=== PATIENT | female | born 1980 | race Caucasian/White ===

== ENCOUNTER 2021-03-23 13:09 | Emergency (ER) | payer OTHER ==
[2021-03-23 14:02] LABS: BILIRUBIN,URINE NEGATIVE (NEGATIVE); GLUCOSE, URINE (UA) NEGATIVE (NEGATIVE); KETONES,URINE (UA) NEGATIVE (NEGATIVE); LEUKOCYTE ESTERASE, URINE NEGATIVE (NEGATIVE); NITRITE,URINE NEGATIVE (NEGATIVE); OCCULT BLOOD,URINE MODERATE (NEGATIVE); PH,URINE 5.5 PH (5.0-7.5); PROTEIN,URINE TRACE mg/dL (NEGATIVE); UROBILINOGEN,URINE 0.2 (NORMAL) E.U./dL (NORMAL)
[2021-03-23 14:04] LABS: BASOPHILS % (AUTO) 0.5 %; EOSINOPHILS # (AUTO) 0.1 10^3/uL (0.0-0.7); EOSINOPHILS % (AUTO) 0.6 %; HGB - HEMOGLOBIN 12.6 g/dL (12.0-16.0); LYMPHOCYTES # (AUTO) 1.7 10^3/uL (1.5-3.5); LYMPHOCYTES % (AUTO) 20.4 %; MEAN CORPUSCULAR HEMOGLOBIN 31.4 pg (27.0-31.0); MEAN CORPUSCULAR HGB CONC 33.2 g/dL (32.0-36.0); MEAN CORPUSCULAR VOLUME 94.8 fL (81.0-99.0); MEAN PLATELET VOLUME 9.9 fL (7.9-10.8); MONOCYTES # (AUTO) 0.3 10^3/uL (0.0-1.0); MONOCYTES % (AUTO) 4.2 %; NEUTROPHILS # (AUTO) 6.1 10^3/uL (1.5-6.6); NEUTROPHILS % (AUTO) 74.1 %; PLT - PLATELET COUNT 189 10^3/uL (130-450); RED BLOOD COUNT 4.01 10^6/uL (4.20-5.40); WHITE BLOOD COUNT 8.2 x10^3/uL (4.8-10.8)
[2021-03-23 14:16] LABS: ALBUMIN 4.3 g/dL (3.2-5.5); ALBUMIN/GLOBULIN RATIO 1.7 (1.0-2.2); BILIRUBIN,TOTAL 0.7 mg/dL (0.2-1.0); CALCIUM 9.2 mg/dL (8.5-10.3); CREATININE 0.7 mg/dL (0.4-1.0); POTASSIUM 4.2 mmol/L (3.5-5.0); TOTAL PROTEIN 6.8 g/dL (6.7-8.2)
[2021-03-23 14:21] LABS: CLARITY,URINE CLEAR (CLEAR); RBC,URINE 0-5 /HPF (0-5); SQUAMOUS EPITHELIAL CELL,UR FEW Squamous (<= Few); WBC,URINE 0-3 /HPF (0-5)
[2021-03-23 14:22] LABS: BACTERIA,URINE Rare /HPF (None Seen)
--- NOTE | 2021-03-23 14:39 | ED Physician Documentation ---
History of Present Illness - Stated complaint Stated Complaint: FEMALE - Chief complaint Chief Complaint: Abd Pain - History obtained from History obtained from: Patient - History of Present Illness Timing: Today Pain level max: 5 Pain level now: 2 - Additonal information Additional information: Patient is a 40-year-old female who presents to the emergency department stating that she has had heavy vaginal bleeding, pelvic cramping for the past 2 days. She states she passed a large piece of tissue today and that the bleeding has now decreased. Pain has decreased as well. She states that she was diagnosed with a miscarriage at the end of January, but did not have follow-up serial ultrasounds or hCGs. No fevers. No chills. Review of Systems Ten Systems: 10 systems reviewed and negative Constitutional: denies: Fever, Chills Respiratory: denies: Cough GI: denies: Vomiting, Diarrhea Skin: denies: Rash Musculoskeletal: denies: Neck pain, Back pain Neurologic: denies: Headache PD PAST MEDICAL HISTORY - Past Medical History Past Medical History: No - Past Surgical History Past Surgical History: No - Allergies Allergies/Adverse Reactions: Allergies Allergy/AdvReac Type Severity Reaction Status Date / Time No Known Drug Allergies Allergy Verified 03/23/21 13:21 - Living Situation Living Situation: reports: With family Living Arrangement: reports: At home PD ED PE NORMAL - Vitals Vital signs reviewed: Yes - General General: Alert and oriented X 3, No acute distress, Well developed/nourished - HEENT HEENT: PERRL, Moist mucous membranes - Neck Neck: Supple, no meningeal sign - Cardiac Cardiac: RRR, Strong equal pulses - Respiratory Respiratory: No respiratory distress, Clear bilaterally - Abdomen Abdomen: Soft, Non tender, Non distended - Derm Derm: Warm and dry - Extremities Extremities: No edema, No calf tenderness / cord - Neuro Neuro: Alert and oriented X 3 - Psych Psych: Normal mood, Normal affect Results - Vitals Vitals: Vital Signs - 24 hr 03/23/21 03/23/21 03/23/21 13:14 15:40 17:35 Temperature 37.0 C Heart Rate 74 69 69 Respiratory 16 16 16 Rate Blood Pressure 127/63 110/76 114/88 H O2 Saturation 100 100 100 Oxygen O2 Source Room air - Labs Labs: Laboratory Tests 03/23/21 03/23/21 03/23/21 13:39 13:58 13:58 WBC 8.2 RBC 4.01 L Hgb 12.6 Hct 38.0 MCV 94.8 MCH 31.4 H MCHC 33.2 RDW 12.0 Plt Count 189 MPV 9.9 Neut # (Auto) 6.1 Lymph # (Auto) 1.7 [place] # (Auto) 0.3 Eos # (Auto) 0.1 Baso # (Auto) 0.0 Absolute Nucleated RBC 0.00 Nucleated RBC % 0.0 Sodium 142 Potassium 4.2 Chloride 107 Carbon Dioxide 27 Anion Gap 8.0 BUN 12 Creatinine 0.7 Estimated GFR (MDRD) 93 Glucose 119 H Calcium 9.2 Total Bilirubin 0.7 AST 16 ALT 15 Alkaline Phosphatase 40 L Total Protein 6.8 Albumin 4.3 Globulin 2.5 Albumin/Globulin Ratio 1.7 Lipase 34 HCG, Quant Urine Color YELLOW Urine Clarity CLEAR Urine pH 5.5 Ur Specific [place] >=1.030 H Urine Protein TRACE Urine Glucose (UA) NEGATIVE Urine Ketones NEGATIVE Urine Occult Blood MODERATE H Urine Nitrite NEGATIVE Urine Bilirubin NEGATIVE Urine Urobilinogen 0.2 (NORMAL) Ur Leukocyte Esterase NEGATIVE Urine RBC 0-5 Urine WBC 0-3 Ur Squamous Epith Cells FEW Squamous Urine Bacteria Rare Ur Microscopic Review INDICATED Urine Culture Comments NOT INDICATED 03/23/21 13:58 WBC RBC Hgb Hct MCV MCH MCHC RDW Plt Count MPV Neut # (Auto) Lymph # (Auto) [place] # (Auto) Eos # (Auto) Baso # (Auto) Absolute Nucleated RBC Nucleated RBC % Sodium Potassium Chloride Carbon Dioxide Anion Gap BUN Creatinine Estimated GFR (MDRD) Glucose Calcium Total Bilirubin AST ALT Alkaline Phosphatase Total Protein Albumin Globulin Albumin/Globulin Ratio Lipase HCG, Quant 80.85 Urine Color Urine Clarity Urine pH Ur Specific [place] Urine Protein Urine Glucose (UA) Urine Ketones Urine Occult Blood Urine Nitrite Urine Bilirubin Urine Urobilinogen Ur Leukocyte Esterase Urine RBC Urine WBC Ur Squamous Epith Cells Urine Bacteria Ur Microscopic Review Urine Culture Comments - Rads (name of study) OB US Radiology: Prelim report reviewed, EMP read contemporaneously, See rad report (Findings are suspicious for minimal retained products of conception. No evidence of intrauterine or ectopic . ) PD MEDICAL DECISION MAKING - ED course Complexity details: reviewed results, re-evaluated patient, considered differential, d/w patient, d/w recruitment consultant ED course: Patient is a 40-year-old female who presents to the emergency department today with vaginal bleeding after a miscarriage a few months ago. Her hCG is still 80. Her ultrasound is suspicious for minimal retained products of conception. No evidence of IUP or ectopic . I discussed the case with Dr. Hair, OB on-call who recommends repeat hCG in a few days to see if it is going up or down. She does not feel a D&C is warranted at this time. Patient was comfortable following up with her doctor in [place]. I actually was able to speak with her doctor in [place] and inform her of the test results, need for follow-up and ultrasound results. Patient counseled regarding signs and symptoms for which I believe and urgent re-evaluation would be necessary. Patient with good understanding of and agreement to plan and is comfortable going home at this time This document was made in part using voice recognition software. While efforts are made to proofread this document, sound alike and grammatical errors may occur. Patient's bleeding decreased significantly in the emergency department and had no significant pain. Departure - Departure Disposition: 01 Home, Self Care Clinical Impression: Miscarriage Condition: Good Instructions: ED Miscarriage Incom Follow-Up: DEBRA BROWER ND, LMW [Physician No Access] - Comments: Please follow-up with your doctor in 3 days for an hCG recheck. You do have possible retained products on your ultrasound. Depending on if the hCG level is going up or down we will determine the next step. You also should return immediately if your bleeding significantly increases or your pain significantly increases. Your HCG level is 80 today. FINDINGS: There is no evidence of an intrauterine or ectopic currently. Uterus measures 11.1 x 4.9 x 6.4 cm The endometrium is lobulated with focal ec hogenic foci, with a feeding vessel extending to the endometrium. The maximum diameter 7.8 mm. Findings are suspicious for possible retained products. Right ovary: 2.2 x 1.8 x 3.1 cm Left ovary: 2.7 x 2.1 x 1.8 cm. There is bilateral intraovarian duplex flow noted. No abnormal adnexal masses are identified. IMPRESSION: Findings are suspicious for minimal retained products of conception. No evidence of intrauterine or ectopic . Discharge Date/Time: 03/23/21 17:39
--- NOTE | 2021-03-23 16:20 | Ultrasound Report ---
PROCEDURE: OB First Trimester w/TV INDICATIONS: pELVIC PX, VAGINAL BLEED, MISCARRIAGE 12/2020. Patient had a miscarriage in December,. Apparently, she passed products of conception. Then, she started having bleeding recently, and has a minimally elevated beta hCG of 80. OUTSIDE/PRIOR DATING DATA: Last menstrual period (LMP): Data not given. First dating scan (date and location): No prior studies in our system. TECHNIQUE: Real-time scanning was performed of the maternal pelvic organs, with image documentation. Endovagina l scanning was also performed to better visualize the endometrial contents and ovaries. COMPARISON: None FINDINGS: There is no evidence of an intrauterine or ectopic currently. Uterus measures 11.1 x 4.9 x 6.4 cm The endometrium is lobulated with focal echogenic foci, with a fe eding vessel extending to the endometrium. The maximum diameter 7.8 mm. Findings are suspicious for p ossible retained products. Right ovary: 2.2 x 1.8 x 3.1 cm Left ovary: 2.7 x 2.1 x 1.8 cm. There is bilateral intraovarian duplex flow noted. No abnormal adnexal masses are identified. IMPRESSION: Findings are suspicious for minimal retained products of conception. No evidence of intrauterine preg oli or ectopic . Above discussed with ALBERT MACDONALD at the time of dictation. Reviewed by: Dakota Alejandro MD on 03/23/2021 3:19 PM MARCELINA Approved by: Dakota Alejandro MD on 03/23/2021 3:19 PM MARCELINA Station ID: [id number]
[2021-03-23 17:36] VITALS: BP 114/88
== END 2021-03-23 17:39 | disposition home or self-care (01) ==
LOC: ED 13:09
DX: O03.9 Complete or unspecified spontaneous abortion without complication (principal)
CPT/HCPCS: 36415; 80053; 81001; 81003; 83690; 84702; 85025; 87086; 99283; 99284